=== PATIENT | female | born 1965 | race Caucasian/White ===

== ENCOUNTER 2018-06-26 17:52 | Emergency (ER) | payer BC, OTHER ==
--- NOTE | 2018-06-26 18:07 | EDM.PDOC ---
ED HPI GENERAL MEDICAL PROBLEM - General Chief Complaint: Cardiovascular Problem Stated Complaint: RACING HEART Time Seen by Provider: 06/26/18 17:58 Source of Information: Reports: Patient History Limitations: Reports: No Limitations - History of Present Illness INITIAL COMMENTS - FREE TEXT/NARRATIVE: 52-year-old female with no significant past medical history presenting with a chief complaint of palpitations. Palpitations started on Monday. Patient states that she's had a few episodes per day of the palpitations with no clear provoking or palliating factors. She states that they last for about 45 seconds to one minute. She has no chest pain, shortness of breath, headache, lightheadedness, nausea, vomiting, abdominal pain. She has no prior history of CAD. She denies hx of HTN, DM, HLD. She drinks about 3 cups of coffee per day. Has never used tobacco, does not drink and uses no other illicit drugs. She presents today because they are planning a road trip in a week and wanted to make sure she is ok. Her mother had a heart attack at about her age. - Related Data Allergies Allergy/AdvReac Type Severity Reaction Status Date / Time No Known Allergies Allergy Verified 06/26/18 18:04 Home Meds: Home Meds Multivitamin [Multi-Day Vitamins] 1 each PO DAILY 06/26/18 [History] Past Medical History - Past Health History Medical/Surgical History: Denies Medical/Surgical History Social & Family History - Family History Family Medical History: Noncontributory - Tobacco Use Smoking Status *Q: Never Smoker - Caffeine Use Caffeine Use: Reports: Coffee - Recreational Drug Use Recreational Drug Use: No ED ROS GENERAL - Review of Systems Review Of Systems: See Below Constitutional: Reports: No Symptoms. Denies: Diaphoresis HEENT: Reports: No Symptoms Respiratory: Reports: No Symptoms Cardiovascular: Reports: Palpitations. Denies: Chest Pain, Dyspnea on Exertion , Edema, Lightheadedness GI/Abdominal: Reports: No Symptoms : Reports: No Symptoms Musculoskeletal: Reports: No Symptoms Skin: Reports: No Symptoms Neurological: Reports: No Symptoms Psychiatric: Reports: No Symptoms ED EXAM, GENERAL - Physical Exam Exam: See Below Exam Limited By: No Limitations General Appearance: Alert, No Apparent Distress Respiratory/Chest: No Respiratory Distress Cardiovascular: Normal Peripheral Pulses, Regular Rate, Rhythm, No Edema, No Gallop, No JVD, No Murmur, No Rub GI/Abdominal: Normal Bowel Sounds, Soft, Non-Tender Extremities: Normal Inspection Neurological: Alert, Oriented, CN II-XII Intact Psychiatric: Normal Affect, Normal Mood Skin Exam: Warm, Dry, Intact EKG INTERPRETATION EKG Date: 06/26/18 Time: 18:19 Rhythm: NSR Rate (Beats/Min): 69 [place]: Normal P-Wave: Present QRS: Normal ST-T: Normal EKG Interpretation Comments: q waves V1, flat T wave in V1. Course - Vital Signs Last Recorded V/S: Last Vital Signs Temp 36.5 C 06/26/18 17:55 Pulse 75 06/26/18 17:55 Resp 18 06/26/18 17:55 BP 136/78 06/26/18 17:55 Pulse Ox 97 06/26/18 17:55 - Orders/Labs/Meds Orders: Active Orders 24 hr Category Date Time Status EKG Documentation Completion [RC] STAT Care 06/26/18 18:07 Active Labs: Laboratory Tests 06/26/18 06/26/18 Range/Units 19:01 19:01 WBC 6.07 (3.98-10.04) K/mm3 RBC 4.07 (3.98-5.22) M/mm3 Hgb 12.6 (11.2-15.7) gm/L Hct 38.4 (34.1-44.9) % MCV 94.3 (79.4-94.8) fl MCH 31.0 (25.6-32.2) pg MCHC 32.8 (32.2-35.5) g/dl RDW Std Deviation 41.3 (36.4-46.3) fL Plt Count 295 (182-369) K/mm3 MPV 8.8 L (9.4-12.3) fl Neut % (Auto) 58.9 (34.0-71.1) % Lymph % (Auto) 31.3 (19.3-51.7) % [place] % (Auto) 7.4 (4.7-12.5) % Eos % (Auto) 2.1 (0.7-5.8) Baso % (Auto) 0.3 (0.1-1.2) % Neut # (Auto) 3.57 (1.56-6.13) K/mm3 Lymph # (Auto) 1.90 (1.18-3.74) K/mm3 [place] # (Auto) 0.45 H (0.24-0.36) K/mm3 Eos # (Auto) 0.13 (0.04-0.36) K/mm3 Baso # (Auto) 0.02 (0.01-0.08) K/mm3 Sodium 142 (136-145) mEq/L Potassium 4.0 (3.5-5.1) mEq/L Chloride 107 (98-107) mEq/L Carbon Dioxide 26 (21-32) mEq/L Anion Gap 13.0 (5-15) BUN 18 (7-18) mg/dL Creatinine 1.1 H (0.55-1.02) mg/dL Est Cr Clr Drug Dosing 50.24 mL/min Estimated GFR (MDRD) 52 (>60) mL/min BUN/Creatinine Ratio 16.4 (14-18) Glucose 115 H (74-106) mg/dL Calcium 8.9 (8.5-10.1) mg/dL Total Bilirubin 0.2 (0.2-1.0) mg/dL AST 22 (15-37) U/L ALT 31 (14-59) U/L Alkaline Phosphatase 52 (46-116) U/L Troponin I < 0.017 (0.00-0.056) ng/mL Total Protein 6.0 L (6.4-8.2) g/dl Albumin 3.3 L (3.4-5.0) g/dl Globulin 2.7 gm/dL Albumin/Globulin Ratio 1.2 (1-2) - Re-Assessments/Exams Free Text/Narrative Re-Assessment/Exam: 52 y F presenting with CC of palpitations. VS normal. Physical exam unremarkable. EKG notable for Q wave in V1 with flat Tw[place]. I don't believe this is indicative of acute ischemia at this time. Nevertheless since she has been having palpitations since Monday I feel that checking one troponin would be conservative. If she sustained any ischemic damage to her heart this will likely be abnormal. CBC, CMP and troponin all normal. Patient remained asymtpomatic in the ED with no arrhythmias on the school lunch monitor. I sat down and discussed with the patient that she had no acute signs of ischemia today on her EKG and that her labs were normal. Her only risk factor for CAD is her family hx with mother having a heart attack before the age of 65. Her HEART score is at most 3, making her risk of MACE 0.9-1.7%. She is safe to be discharged home at this time and may pursue further outpatient workup with her PCP. She states she has an appointment next week. She was given strict return precautions, all questions answered. Departure - Departure Time of Disposition: 19:49 Disposition: Home, Self-Care 01 Condition: Good Clinical Impression: Heart palpitations Instructions: Palpitations, [id number] Referrals: PCP,Not In Area [Primary Care Provider] - Forms: ED Department Discharge Additional Instructions: You were seen in the ED today for palpitations. At this time your testing does not show any acutely dangerous conditions. It is important to follow up with your PCP closely to see if they want to do further testing as an outpatient. It is safe to go home tonight. If at any time you have new chest pain, shortness of breath, dizziness, headache, visual changes, nausea or palpitations which do not go away please return to the nearest ED for re-evaluation. - My Orders Last 24 Hours: My Active Orders 06/26/18 18:07 EKG Documentation Completion [RC] STAT - Assessment/Plan Last 24 Hours: My Active Orders 06/26/18 18:07 EKG Documentation Completion [RC] STAT
== END 2018-06-26 19:56 | disposition home or self-care (01) ==
LOC: JD.ED 17:52
DX: R00.2 Palpitations (principal)
CPT/HCPCS: 36415; 80053; 84484; 85025; 93005; 99285-25

== ENCOUNTER 2019-01-31 17:17 | Emergency (ER) | payer BC, OTHER ==
--- NOTE | 2019-01-31 18:16 | EDM.PDOC ---
ED HPI GENERAL MEDICAL PROBLEM - General Chief Complaint: General Stated Complaint: LOW BLOOD PRESSURE Time Seen by Provider: 01/31/19 17:36 Source of Information: Reports: Patient, RN Notes Reviewed History Limitations: Reports: No Limitations - History of Present Illness INITIAL COMMENTS - FREE TEXT/NARRATIVE: Patient is a 53-year-old female presents to the ED for the evaluation of low blood pressure. She states that she has been feeling ill for the last day and a half. She attempted to go to the walk-in clinic and was told that she had a blood pressure systolically in the 90s and was immediately sent to the ER. She notes that she has felt like she has influenza, she's had a temperature at home and chills although she did not take her temperature at home. She is afebrile at time of evaluation today. She also is complaining of some upper gastric cramping and body aches. She doesn't have any other like symptoms, cough, otherwise. The patient states that she was laying around in bed all day and probably hadn't drinking as much fluid as she should have, and only ate one piece of dry toast this morning. The patient relates that she did have a flu shot this season as well. She states she did take 2 tablets of ibuprofen roughly around 2:30 this afternoon. He states her primary care provider to be Dr. Molina - Related Data Allergies Allergy/AdvReac Type Severity Reaction Status Date / Time No Known Allergies Allergy Verified 06/26/18 18:04 Home Meds: Home Meds Multivitamin [Multi-Day Vitamins] 1 each PO DAILY 06/26/18 [History] Past Medical History - Past Health History Medical/Surgical History: Denies Medical/Surgical History Cardiovascular History: Reports: High Cholesterol, Other (See Below) Other Cardiovascular History: sick sinus syndrome-mild case and not put on any medication Social & Family History - Family History Family Medical History: Noncontributory - Tobacco Use Smoking Status *Q: Never Smoker - Caffeine Use Caffeine Use: Reports: Coffee, Tea - Recreational Drug Use Recreational Drug Use: No ED ROS GENERAL - Review of Systems Review Of Systems: See Below Constitutional: Reports: Fever, Chills, Malaise HEENT: Reports: No Symptoms Respiratory: Reports: No Symptoms Cardiovascular: Reports: Blood Pressure Problem. Denies: Chest Pain, Edema, Lightheadedness Endocrine: Reports: No Symptoms GI/Abdominal: Reports: No Symptoms : Reports: No Symptoms Musculoskeletal: Reports: Other (General myalgias) Skin: Reports: No Symptoms Neurological: Reports: No Symptoms Psychiatric: Reports: No Symptoms Hematologic/Lymphatic: Reports: No Symptoms Immunologic: Reports: No Symptoms ED EXAM, GENERAL - Physical Exam Exam: See Below Exam Limited By: No Limitations General Appearance: Alert, WD/WN, No Apparent Distress Eye Exam: Bilateral Eye: EOMI, Normal Inspection, PERRL Ears: Normal External Exam, Normal Canal, Normal TMs Nose: Normal Inspection Throat/Mouth: Normal Inspection, Normal Lips, Normal Teeth, Normal Gums, Normal Oropharynx, Normal Voice, No Airway Compromise Head: Atraumatic, Normocephalic Neck: Normal Inspection, Supple, Non-Tender, Full Range of Motion Respiratory/Chest: No Respiratory Distress, Lungs Clear, Normal Breath Sounds, No Accessory Muscle Use, Chest Non-Tender Cardiovascular: Normal Peripheral Pulses, Regular Rate, Rhythm, No Murmur Peripheral Pulses: 3+: Dorsalis Pedis (L), Dorsalis Pedis (R) GI/Abdominal: Normal Bowel Sounds, Soft, Non-Tender, No Distention, No Mass Extremities: Normal Inspection, Normal Capillary Refill Neurological: Alert, Oriented, Normal Cognition, No Motor/Sensory Deficits Psychiatric: Normal Affect, Normal Mood Skin Exam: Warm, Dry, Intact, Normal Color, No Rash Course - Vital Signs Last Recorded V/S: Last Vital Signs Temp 98.5 F 01/31/19 17:23 Pulse 78 01/31/19 17:23 Resp 20 01/31/19 17:23 BP 133/82 01/31/19 17:23 Pulse Ox 99 01/31/19 17:23 - Re-Assessments/Exams Free Text/Narrative Re-Assessment/Exam: 01/31/19 18:15 Patient presents to the ED for the evaluation of questionable low blood pressure. Her blood pressure time and triage is 133/82 and she is not hypotensive. I did order an influenza swab for further evaluation of her flulike symptoms. This did come back negative. I will give general recommendations and discharge the patient home. Departure - Departure Time of Disposition: 18:15 Disposition: Home, Self-Care 01 Condition: Fair Clinical Impression: Viral respiratory illness - Discharge Information *PRESCRIPTION DRUG MONITORING PROGRAM REVIEWED*: No *COPY OF PRESCRIPTION DRUG MONITORING REPORT IN PATIENT [place]: No Instructions: Viral Respiratory Infection, [id number] Referrals: Aliyah Jade MD [Primary Care Provider] - Additional Instructions: You have been evaluated in the ED for cold like symptoms and fever. You did test negative for influenza. Your symptoms are likely due to a virus. You may take 500 mg Tylenol/600 mg ibuprofen every 6 hours as needed for general aches/fever. Please do not exceed 4000 mg of Tylenol, 3200 mg of ibuprofen in a 24-hour time span. You may also take general [id number] cold medications for symptomatic relief. Recommend increased fluid intake as well as a bland diet until you can tolerate normal foods. Please return to the ED if your symptoms should change or worsen.
== END 2019-01-31 18:30 | disposition home or self-care (01) ==
LOC: JD.ED 17:17
DX: B34.9 Viral infection, unspecified (principal); Z79.899 Other long term (current) drug therapy
CPT/HCPCS: 87804; 99282; 99283